=== PATIENT | male | born 1995 | race African-American/Black ===

== ENCOUNTER 2019-12-04 16:58 | Emergency (ER) | payer MEDICAID ==
[~2019-12-04] VITALS: Ht 182.9 cm; Wt 81.6 kg
[2019-12-04 18:09] VITALS: BP_SYST 141
--- NOTE | 2019-12-04 18:12 | NUR ---
PATIENT TO WAITING AREA STABLE AND UNCHANGED
--- NOTE | 2019-12-04 18:43 | NUR ---
Patient to ER bed 4 to gown for evaluation. Side rails up. Report given to KENNY García.
--- NOTE | 2019-12-04 18:50 | NUR ---
Patient brought in with and mother ambulated to bedside. Patient reports that he has been intermittently vomiting since last night with cough, diaphoresis, agitation and restlessness. Denies any pain. Patient reports that he feelis "alcohol poisoned." Patient reports drinking 750 ml of whiskey last night but reports not drinking daily. Denies any pain. Denies any nausea, vomiting or diarrhea, or as noted. will continue to monitor.
[2019-12-04] MEDS ORDERED: ONDANSETRON HCL 4 MG/2 ML VIAL IVP ONE (19:00)
[2019-12-04] MEDS ORDERED: NACL 0.9% 2,000 ML IV ONE (19:00)
[2019-12-04 19:26] LABS: BASOPHILS % (AUTO) 0.7 % (0.0-2.0); EOSINOPHILS % (AUTO) 0.3 % (0.0-4.0); HEMOGLOBIN 17.2 g/dL (14.0-18.0); LYMPHOCYTES # (AUTO) 1.1 K/uL (1.0-5.5); LYMPHOCYTES % (AUTO) 18.3 % (20.5-51.5); MEAN CORPUSCULAR HEMOGLOBIN 33 pg (27-31); MEAN CORPUSCULAR HGB CONC 34 % (32-36); MEAN CORPUSCULAR VOLUME 95 fL (79.0-98.0); MONOCYTES # (AUTO) 0.7 K/uL (0.0-1.0); MONOCYTES % (AUTO) 11.8 % (1.7-9.3); NEUTROPHILS % (AUTO) 68.9 % (40.0-70.0); PLATELET COUNT (AUTO) 305 K/uL (130-430); RED BLOOD CELL COUNT(AUTO) 5.24 MIL/uL (4.2-6.2); RED CELL DISTRIBUTION WIDTH 12.6 % (9.0-15.0); WHITE BLOOD COUNT (AUTO) 5.8 K/uL (4.8-10.8)
[2019-12-04 19:48] LABS: BARBITURATE, URINE NEGATIVE (NEG <=200); BENZODIAZEPINE, URINE NEGATIVE (NEG <=150); CANNABINOID, URINE POSITIVE (NEG <=50); COCAINE, URINE NEGATIVE (NEG <=150); METHAMPHETAMINES SCREEN,URINE NEGATIVE (NEG <=500); OPIATE, URINE NEGATIVE (NEG <=100); PHENCYCLIDINE SCREEN,URINE NEGATIVE (NEG <=25); UR TRICYCLIC ANTIDEPRESSANTS NEGATIVE (NEG <=300); URINE AMPHETAMINE NEGATIVE (NEG <=500); URINE METHADONE NEGATIVE (NEG <=200); URINE OXYCODONE SCREEN NEGATIVE (NEG <=100); URINE PROPOXYPHENE SCREEN NEGATIVE (NEG <=300)
[2019-12-04 19:52] LABS: CALCIUM 9.6 mg/dL (8.4-11.0); CREATININE 0.95 mg/dL (0.55-1.30)
[2019-12-04 19:58] LABS: ALBUMIN 4.6 g/dL (3.4-4.8); TOTAL BILIRUBIN 1.9 mg/dL (0.0-1.0)
--- NOTE | 2019-12-04 20:05 | NUR ---
Patient refused Zofran at this time. Denies any nausea.
[2019-12-04] MEDS ORDERED: NACL 0.9% 1,000 ML IV ONE (20:30)
--- NOTE | 2019-12-04 20:35 | NUR ---
Medicated per MD orders. IVF infusing with no s/s of infiltration at this time. Will cont to monitor
[2019-12-04 21:51] VITALS: BP_SYST 142
--- NOTE | 2019-12-04 21:51 | NUR ---
Patient given written and verbal discharge instructions and verbalizes understanding. ER MD discussed with patient the results and treatment provided. Patient in stable condition. ID arm band removed. IV catheter removed intact and dressing applied, no active bleeding. NO RX given. Patient educated on pain management and to follow up with PMD. Pain Scale 0/10 Opportunity for questions provided and answered.
== END 2019-12-04 21:51 | disposition home or self-care (01) ==
LOC: SED 16:58
DX: E80.7 Disorder of bilirubin metabolism, unspecified (principal); R42 Dizziness and giddiness; R11.10 Vomiting, unspecified; Z72.89 Other problems related to lifestyle; Z88.6 Allergy status to analgesic agent
CPT/HCPCS: 36415; 71045; 80053; 80307; 83690; 85025; 96360; 96361; 99284; G0482; J2405; J7030